=== PATIENT | female | born 2000 | race Two or more races ===

== ENCOUNTER 2021-04-15 14:57 | Observation (INO) | payer OTHER ==
[2021-04-15 17:01] VITALS: TEMP 98; BMI 20.3
[2021-04-15] MEDS ORDERED: SODIUM CHLORIDE 0.9% 500 ML INFUS.BAG IV ONE (18:48)
[2021-04-15 19:10] LABS: BASO % 0.3 % (0-2.0); EOS % 0.2 % (0-4.5); HEMATOCRIT 36.6 % (32.4-45.2); HEMOGLOBIN 12.5 GM/dL (10.7-15.3); LYMPH % 8.5 % (8-40); MCH 29.4 pg (25.7-33.7); MCHC 34.2 g/dl (32.0-36.0); MEAN CELL VOLUME 86.1 fl (80-96); MEAN PLT VOLUME 7.6 fl (7.5-11.1); MONO % 4.4 % (3.8-10.2); NEUT % 86.6 % (42.8-82.8); PLATELET COUNT 248 10^3/uL (134-434); RBC 4.25 M/mm3 (3.60-5.2); RDW 13.8 % (11.6-15.6); WHITE BLOOD COUNT 8.7 K/mm3 (4.0-10.0)
[2021-04-15 19:18] VITALS: BP 98/52; PULSE 78
[2021-04-15 19:21] LABS: INR 1.17 (0.83-1.09); PROTHROMBIN TIME (PATIENT) 13.1 SEC (9.7-13.0)
[2021-04-15 19:24] LABS: ACTIVATED PTT 25.7 SECONDS (25.2-36.5)
[2021-04-15 19:48] LABS: CHLORIDE 109 mmol/L (98-107); SODIUM 140 mmol/L (136-145)
[2021-04-15 19:51] LABS: ANION GAP 6 MMOL/L (8-16); BLOOD UREA NITROGEN 9.3 mg/dL (7-18); CO2 25 mmol/L (21-32); GLUCOSE,RANDOM 85 mg/dL (74-106); MAGNESIUM 2.2 mg/dL (1.8-2.4)
[2021-04-15 19:54] LABS: CREATININE 0.5 mg/dL (0.55-1.3); SGOT/AST 11 U/L (15-37); SGPT/ALT 16 U/L (13-61)
[2021-04-15 19:54] LABS: EPI CELLS >36 /uL (0-25.1); HYALINE CASTS 8 /uL (0-3.1); PH,URINE 6.5 (5.0-8.0); URINE APPEARANCE CLOUDY; URINE BACTERIA >9,000 /uL (0-1359); URINE BILIRUBIN NEGATIVE (NEGATIVE); URINE COLOR YELLOW; URINE GLUCOSE (UA) NEGATIVE (NEGATIVE); URINE KETONE TRACE (NEGATIVE); URINE LEUK ESTERASE 1+ (NEGATIVE); URINE NITRITE POSITIVE (NEGATIVE); URINE PROTEIN TRACE (NEGATIVE); URINE RBC 573 /uL (0-23.9); URINE WBC 92 /uL (0-25.8)
[2021-04-15 19:56] LABS: BILIRUBIN,TOTAL 0.4 mg/dL (0.2-1); TOT PROT 7.5 g/dl (6.4-8.2)
[2021-04-15 19:57] LABS: ALK PHOS 39 U/L (45-117)
[2021-04-15] MEDS ORDERED: CEFTRIAXONE 1 GM in DEXTROSE 5%-WATER - 50 ML IVPB ONE (20:09)
[2021-04-15] MEDS ORDERED: IBUPROFEN 600 MG TABLET (FP) PO ONE ×2 (20:35→20:37)
[2021-04-15] MEDS ORDERED: CEFTRIAXONE 1 GM/50 ML BAG ONE (20:38)
== END 2021-04-16 02:13 | disposition left against medical advice (07) ==
LOC: JER 14:57 → JERBED 21:16
PROVIDERS: ADMIT Internal Medicine; ATTEND Internal Medicine
DX: R55 Syncope and collapse (principal); N94.6 Dysmenorrhea, unspecified; N39.0 Urinary tract infection, site not specified
CPT/HCPCS: 36415; 76856-TC; 80053; 81003; 82550; 83735; 84484; 84703; 85025; 85610; 85730; 86850; 86900; 86901; 87086; 87186; 87804; 93005; 93010; 96365; 99285-25; C9803; G0378; U0003; U0005

== ENCOUNTER 2021-04-16 17:30 | Emergency (ER) | payer OTHER ==
[2021-04-16 17:41] VITALS: BP 103/51; PULSE 103; TEMP 98.4; BMI 20.3
== END 2021-04-16 20:54 | disposition home or self-care (01) ==
LOC: JER 17:30
DX: N39.0 Urinary tract infection, site not specified (principal)
CPT/HCPCS: 99281-25